=== PATIENT | female | born 1935 | race Caucasian/White ===

== ENCOUNTER 2017-10-12 08:58 | Emergency (ER) | payer MEDICARE ==
[~2017-10-12] VITALS: Ht 160 cm; Wt 75.0 kg
[~2017-10-12 08:58] MED LIST: ACET325 PO; ASPI81 PO; ATEN1TAB74 PO; CALC600T34 PO; DIOV80TA4 PO; FISH1000 PO; HYDR-2768 PO; OMPR20CCR PO; PRED20 PO; TAB-TAB PO; VIT C; VITA400C70 PO; [UNRECOGNIZED DRUG - CODE] TOP
[2017-10-12 09:06] VITALS: BP 125/60; PULSE 57; RESP 16; TEMP 98.8; O2SAT 97
[2017-10-12] MEDS ORDERED: CALC1TAB12 PO (09:19)
[2017-10-12] MEDS ORDERED: PRAV20TA2 PO (09:19)
[2017-10-12] MEDS ORDERED: OCUVTAB4 PO (09:19)
[2017-10-12] MEDS ORDERED: HYDR25TA5 PO (09:19)
[2017-10-12] MEDS ORDERED: RIVA13.3 T-DERMAL (09:19)
[2017-10-12] MEDS ORDERED: OMEP20TA93 PO (09:19)
[2017-10-12] MEDS ORDERED: BETH25TA2 PO (09:19)
[2017-10-12] MEDS ORDERED: OMEGCAP PO (09:19)
[2017-10-12] MEDS ORDERED: ATEN50TA PO (09:19)
[2017-10-12] MEDS ORDERED: VALS1TAB64 PO (09:19)
[2017-10-12] MEDS ORDERED: ACETAMINOPHEN/HYDROcodone 325 MG/5 MG TAB PO ONE (09:30)
--- NOTE | 2017-10-12 10:08 | RADRPT ---
EXAM DATE/TIME: 10/12/2017 09:45 [place] COMPARISON: No previous studies available for comparison. INDICATIONS : Trauma. Fell last night. Low back pain. RADIATION DOSE: 35.02 CTDIvol (mGy) MEDICAL HISTORY : Gastroesophageal reflux disease. Hypertension. SURGICAL HISTORY : Appendectomy. Hysterectomy. section. ENCOUNTER: Initial ACUITY: 1 day PAIN SCALE: 7/10 LOCATION: Lumbar spine. TECHNIQUE: Volumetric scanning of the lumbar spine was performed. Multiplanar reconstructions in the sagittal, coronal and oblique axial planes were performed. Using automated exposure control and adjustment of the mA and/or kV according to patient size, radiation dose was kept as low as reasonably achievable t o obtain optimal diagnostic quality images. DICOM format image data is available electronically for review and comparison. FINDINGS: VERTEBRAE: Normal vertebral body height. Marked endplate cupping superiorly at L2. Chronic wedging of T11. ALIGNMENT: No evidence of subluxation. T12-L1: The thecal sac has a normal diameter. No evidence of disc bulge or protrusion. The neural foramina are patent bilaterally. L1-L2: The thecal sac has a normal diameter. No evidence of disc bulge or protrusion. The neural foramina are patent bilaterally. L2-L3: The thecal sac has a normal diameter. No evidence of disc bulge or protrusion. The neural foramina are patent bilaterally. L3-L4: The thecal sac has a normal diameter. No evidence of disc bulge or protrusion. The neural foramina are patent bilaterally. L4-L5: The thecal sac has a normal diameter. No evidence of disc bulge or protrusion. The neural foramina are patent bilaterally. L5-S1: The thecal sac has a normal diameter. No evidence of disc bulge or protrusion. The neural foramina are patent bilaterally. CONCLUSION: Endplate cupping of L2. No evidence of acute fracture or significant spondylolisthesis identified. En dplates are grossly intact. No significant paravertebral soft tissue swelling. Marcus Corbett MD on October 12, 2017 at 10:05 Board Certified Radiologist. This report was verified electronically.
[2017-10-12] MEDS ORDERED: HYDR-3516 PO (10:17)
--- NOTE | 2017-10-12 10:18 | PD ---
HPI Chief Complaint: Fall Time Seen by Provider: 09:22 Travel History International Travel<30 days: No Contact w/Intl Traveler<30days: No Traveled to known affect area: No History of Present Illness HPI This 81-year-old female is complaining of low back pain. She was outside last night and had a fall. She was able to get up on her own. Has been having some back pain since then. He has a history of sciatica. She has not noted any numbness or weakness of her leg. She did not hit her head PFSH Past Medical History Hx Anticoagulant Therapy: Yes (asa 81 mg) Heart Rhythm Problems: Yes (HX TACHYCARDIA) Cancer: Yes (SKIN) Cardiovascular Problems: Yes (htn) Diabetes: No GERD: Yes Glaucoma: No Hepatitis: No Hiatal Hernia: No Hypertension: Yes Thyroid Disease: No ?: Not Past Surgical History Abdominal Surgery: Yes (APPY) Eye Surgery: Yes (CATARACT SX RIGHT EYE) Gynecologic Surgery: Yes (HYSTERECTOMY, C SECTION X 2) Hysterectomy: Yes Oral Surgery: Yes (DEVIATED SEPTUM) Pacemaker: No Other Surgery: Yes Social History Alcohol Use: No Tobacco Use: No Substance Use: No Allergies-Medications (Allergen,Severity, Reaction): Coded Allergies: lisinopril (Unverified Allergy, Intermediate, COUGH, 10/12/17) Reported Meds & Prescriptions Reported Meds & Active Scripts Active Reported [place]-3 Fish Oil/Vitamin (Fish Oil-Cholecalciferol) 1,000-1,000 Mg Cap 1 Cap PO DAILY Calcium 500 +D (Calcium Carbonate-Cholecalciferol) 500-400 Mg-Unit Tab 1 Tab PO DAILY Preservision Areds (Multiple Vitamins W/ Minerals) 1 Tab 2 Tab PO DAILY Bethanechol 25 Mg Tab 12.5 Mg PO BID Exelon Patch (Rivastigmine) 13.3 mg/24 hr Patch 1 Patch T-DERMAL DAILY Pravastatin 20 Mg Tab 20 Mg PO DAILY Omeprazole 20 Mg Tab 20 Mg PO BID Valsartan 80 Mg Tab 80 Mg PO BID Atenolol 50 Mg Tab 50 Mg PO BID Hydrochlorothiazide 25 Mg Tab 25 Mg PO DAILY Review of Systems Except as stated in HPI: all other systems reviewed are Neg General / Constitutional: No: Fever, Chills HENT: No: Headaches Cardiovascular: No: Chest Pain or Discomfort, Palpitations Respiratory: No: Cough Gastrointestinal: No: Vomiting, Diarrhea Genitourinary: No: Frequency Musculoskeletal: Positive: Myalgias, Pain Skin: No Rash, No Itching Neurologic: No: Weakness Endocrine: No: Cold Intolerance Hematologic/Lymphatic: No: Easy Bruising Physical Exam Narrative GENERAL: Well-developed female SKIN: Focused skin assessment warm/dry. HEAD: Atraumatic. Normocephalic. EYES: Pupils equal and round. No scleral icterus. No injection or drainage. ENT: No nasal bleeding or discharge. Mucous membranes pink and moist. NECK: Trachea midline. No JVD. CARDIOVASCULAR: Regular rate and rhythm. No murmur appreciated. RESPIRATORY: No accessory muscle use. Clear to auscultation. Breath sounds equal bilaterally. GASTROINTESTINAL: Abdomen soft, non-tender, nondistended. Hepatic and splenic margins not palpable. MUSCULOSKELETAL: No obvious deformities. No clubbing. No cyanosis. No edema. Some tenderness of the low back. Straight leg raising is painful bilaterally at 30. Sensation of the legs is intact. There is good strength in plantar dorsiflexion. NEUROLOGICAL: Awake and alert. No obvious cranial nerve deficits. Motor grossly within normal limits. Normal speech. PSYCHIATRIC: Appropriate mood and affect; insight and judgment normal. Data Data Last Documented VS Vital Signs Date Time Temp Pulse Resp B/P (MAP) Pulse Ox O2 Delivery O2 Flow Rate FiO2 10/12/17 09:06 98.8 57 16 125/60 (81) 97 Orders Orders Acetamin-Hydrocod 325-5 Mg ([place] 5-325 (10/12/17 09:30) Ct Lumb Spine W/O Contrast (10/12/17 09:30) [facility] Medical Decision Making Medical Screen Exam Complete: Yes Emergency Medical Condition: Yes Medical Record Reviewed: Yes Differential Diagnosis Differential includes contusion of the back, HNP, fracture Narrative Course CT is negative for acute fracture. Impression is contusion Diagnosis Primary Impression: Contusion of lower back Scripts Hydrocodone-Acetaminophen (Hydrocodone-Acetaminophen) 5-325 mg Tab 1 TAB PO Q4H Y for PAIN, #15 TAB 0 Refills Prov: Soren Shields MD 10/12/17 Disposition: 01 DISCHARGE HOME Condition: Stable Soren Shields MD Oct 12, 2017 10:18
== END 2017-10-12 10:30 | disposition home or self-care (01) ==
LOC: PHEFT 08:58
DX: S30.0XXA Contusion of lower back and pelvis, initial encounter (principal); I10 Essential (primary) hypertension; W19.XXXA Unspecified fall, initial encounter; Z88.8 Allergy status to other drugs, medicaments and biological substances; Z79.82 Long term (current) use of aspirin; Z85.828 Personal history of other malignant neoplasm of skin
CPT/HCPCS: 72131; 99283